=== PATIENT | female | born 1995 | race Caucasian/White ===

== ENCOUNTER 2018-08-10 22:04 | Inpatient (IN) ==
--- NOTE | 2018-08-10 23:24 | ED ---
History of Present Illness Primary Care Physician: Bayron Escoto MD Chief Complaint: Leaking of fluid History of Present Illness: 22-year-old , IUP at 40.2 care complicated by history of HSV but taking antivirals The patient presents complaining of leaking of fluid since 2 PM. She reports that she just constantly feels like she needs to change her underwear. She reports that this feels like leaking of fluid, not vaginal discharge. She reports of fluid is clear. She did not does not believe it is urine. She denies any large gush. She denies any painful contractions or cramping. She reports good movement. She denies any leaking of fluid or vaginal bleeding. She denies any headache tonight. She denies any visual changes, right upper quadrant or epigastric pain. 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, menarche at age 11, menses monthly, history of HSV PMH: denies FH: denies PSH: nasal septum repair SH: denies Meds/Allergies: as per EMR Weeks Gestation:: 40 Para: 0 : 2 Total # of Miscarriage(s): 0 Total # of Abortions (Spontaneous & Elective): 1 Review of Systems All other systems reviewed negative except as stated in HPI PMFSH - Medical History Medical History: Medical History (Last Updated 07/19/18 @ 15:05 by Omer Burk MD) HSV (herpes simplex virus) anogenital infection History of chronic hypertension History of wisdom tooth extraction - Surgical History Surgical History: Surgical History (Last Updated 07/19/18 @ 15:05 by Omer Burk MD) H/O rhinoplasty - Tobacco History Smoking Status: Former smoker - Alcohol History How Often Do You Have a Drink Containing Alcohol: Never - Substance Use History Substance History: No History of Abuse Medications and Allergies Active Medications: Active Medications Sodium Chloride (Ns Flush) 2 ml IV.FLUSH BID CHIDI Sodium Chloride (Ns Flush) 2 ml IV.FLUSH PRN PRN PRN Reason: FLUSH AFTER USING IV ACCESS Allergies Allergy/AdvReac Type Severity Reaction Status Date / Time No Known Allergies Allergy Verified 08/10/18 23:25 Home Medications Medication Instructions Recorded Confirmed Type PNV cmb#95-ferrous fumarate-FA 1 tab PO DAILY NEB 07/19/18 08/10/18 History [] acyclovir 250 mg PO BID 07/19/18 08/10/18 History Exam Vital signs: Vital Signs 08/10/18 22:28 08/10/18 22:48 08/10/18 23:15 Temperature 98.0 F Pulse Rate 110 H 101 H 105 H Respiratory Rate 20 Blood Pressure 155/95 H 140/81 135/82 Narrative: GENERAL: Well-nourished, well-developed patient. NAD. SKIN: Warm and dry. No rashes, masses, lesions noted. HEAD: Normocephalic and atraumatic. EYES: No scleral icterus. No injection or drainage. ENT: No nasal drainage noted. Mucous membranes pink. Airway patent. NECK: Supple, trachea midline. No JVD. CARDIOVASCULAR: Regular rate and rhythm without murmurs, gallops, or rubs. RESPIRATORY: Breath sounds equal bilaterally. No accessory muscle use. BREASTS: Deferred ABDOMEN/GI: Abdomen soft, non-tender, bowel sounds present, no rebound, no guarding, Gravid. GENITOURINARY: Normal EGBUS, no cervical or vaginal masses noted, physiologic discharge, grossly normal rugae, SVE 1/50/-3, Amnisure negative, no lesions noted FHT's: NST indicated for postterm , elevated BP. Moderate snf variability with heart rate baseline in the 120s, good accelerations and no decelerations noted. This is a category 1 heart rate tracing and reactive NST. EXTREMITIES: No cyanosis or edema. BACK: Nontender without obvious deformity. No CVA tenderness. NEUROLOGICAL/Musculoskeletal/Psychiatric: Awake and alert. Grossly normal memory /affect. Grossly normal range of motion. Grossly normal gait. Motor and sensory grossly within normal limits. Five out of 5 muscle strength in all muscle groups. Normal speech. Cranial Nerves II-XII are grossly intact. BPP report: a limited bedside ultrasound was performed by for BPP, numerous gross body movements and flexion/extension movements, >30 seconds continuous breathing, LENA 9.26 (3.22/2.82/3.22) Results - Labs CBC & Chem 7: 08/10/18 23:10 08/10/18 23:10 Assessment and Plan - Plan Assessment/plan: 1. IUP at 40.2 2. Gestational hypertension: We will admit to Dr. Vagovik and initiate induction of labor with Cytotec. I discussed with the patient the various methods of induction of labor and discussed the risks, benefits, and alternatives to each. We discussed that Cervidil acts more slowly over 12 hours. But Cytotec may be redosed more quickly however cannot be removed in the event the fetus does not tolerate the contractions are medication. We discussed that cervical ripening is indicated and will allow her body to respond better to Pitocin. The patient is in agreement with proceeding with Cytotec. We discussed the goal of a healthy and healthy mother. We discussed that the primary goal is a vaginal delivery but but that sometimes delivery is indicated. We discussed the risks of vaginal delivery including lacerations, bleeding/ hemorrhage, and shoulder dystocia which occurs in up to 3% of deliveries. We discussed that shoulder dystocia is unpredictable but she has no indications to recommend delivery. Her GDM testing was negative. We discussed the risks of shoulder dystocia that include but are not limited to a approximately 3-5% risk of permanent and irreversible neurological injury. We discussed the indications for section including maternal indications, indications, and emergent indications. The risks, benefits, and alternatives of section were discussed with the patient. The risks include but are not limited to pain, infection, bleeding, injury to other organs like the bladder/bowel/nerves/ vessels, injury to the baby, need for repeat operation, need for hysterectomy, need for blood transfusion, wound infection or breakdown, and other possible risks. All the patient's questions were answered and consent had previously been signed. She desires to proceed with induction of labor planning for a vaginal delivery. 3. well-being: Reassuring testing with reactive NST and category 1 heart rate tracing. Patient had a bedside biophysical profile that was 8/8 for a total score of 10/10, will continue monitoring 4. GBS negative 5. History of HSV: Patient has been taking famciclovir, no lesions are noted and patient complains of no symptoms Discharge Plan - Discharge Disposition Patient Disposition: ED Admit(ED Internal Use Only) - Physicians Team ED Provider: Emilee Ortiz Primary Care Provider: Bayron Escoto
[2018-08-10 23:30] LABS: Hematocrit 36.2 % (35.0-46.0); Hemoglobin 12.3 gm/dL (11.6-15.3); Mean Corpuscular HGB Conc 33.9 % (32.0-36.0); Mean Corpuscular Hemoglobin 30.1 pg (27.0-34.0); Mean Corpuscular Volume 88.9 fL (80.0-100.0); Mean Platelet Volume 8.2 fL (7.0-11.0); Platelet Count 248 th/mm3 (150-450); Red Blood Count 4.08 mil/mm3 (4.00-5.30); Red Cell Distribution Width 14.1 % (11.6-17.2); White Blood Count 10.9 th/mm3 (4.0-11.0)
[2018-08-10 23:45] LABS: Protein/Creatinine Ratio,Urine 0.21 (0.00-0.14); Total Protein,Urine Random 22.8 mg/dL (0-11.8)
[2018-08-10 23:46] LABS: Bacteria,Urine Rare /hpf; Bilirubin,Urine Negative (Negative); Clarity,Urine Clear (Clear); Color,Urine Yellow (Yellw/Straw); Glucose,Urine (UA) Negative (Negative); Leukocyte Esterase,Urine Small (Negative); Mucus,Urine Few /lpf (Occasional); Nitrite,Urine Negative (Negative); Specific Gravity,Urine 1.016 (1.002-1.035); Squamous Epithelial Cell,Urine 3 /hpf (0-5)
[2018-08-10 23:54] LABS: Albumin 2.9 g/dL (3.4-5.0); Anion Gap 10 meq/L (5-15); Aspartate Aminotransferase 13 U/L (15-37); Blood Urea Nitrogen 9 mg/dL (7-18); Calcium 10.1 mg/dL (8.5-10.1); Carbon Dioxide 21.6 meq/L (21.0-32.0); Chloride 107 meq/L (98-107); Glomerular Filtration Rate Greater Than 89 mL/min (>89); Glucose,Random 75 mg/dL (74-106); Potassium 4.2 meq/L (3.5-5.1); Sodium 139 meq/L (136-145); Uric Acid 4.4 mg/dl (2.6-6.0)
[2018-08-10 23:55] LABS: Alanine Aminotransferase 21 U/L (10-53)
[2018-08-10 23:57] LABS: Alkaline Phosphatase 176 U/L (45-117); Total Protein 7.1 g/dL (6.4-8.2)
[2018-08-11] MEDS ORDERED: Sodium Chlor 0.9% Inj 500 ML IV.SIG PRN (00:35)
[2018-08-11] MEDS ORDERED: Sod Chloride 0.9% Inj 1,000 ML IV.CONT PRN (00:35)
[2018-08-11] MEDS ORDERED: Naloxone Inj 0.4 MG/ML Vial IV.PUSH PRN (00:35)
[2018-08-11] MEDS ORDERED: fentaNYL Citrate Inj 100 MCG/2 ML Ampul IV.PUSH PRN (00:35)
[2018-08-11] MEDS ORDERED: Oxytocin 30 Units/500ml Premix 30 UNITS/500 ML BAG IV.SIG ONE (00:35)
--- NOTE | 2018-08-11 00:35 | P.HPOB ---
History of Present Illness Primary Care Physician: Bayron Escoto MD Chief Complaint: Leaking of fluid History of Present Illness: Chief Complaint: Leaking of fluid History of Present Illness: 22-year-old , IUP at 40.2 at presentation, now 40.3 care complicated by history of HSV but taking antivirals The patient presents complaining of leaking of fluid since 2 PM yesterday. She reports that she just constantly feels like she needs to change her underwear. She reports that this feels like leaking of fluid, not vaginal discharge. She reports of fluid is clear. She did not does not believe it is urine. She denies any large gush. She denies any painful contractions or cramping. She reports good movement. She denies any leaking of fluid or vaginal bleeding. She denies any headache tonight. She denies any visual changes, right upper quadrant or epigastric pain. 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 NAD. SKIN: Warm and dry. No rashes, masses, lesions noted. HEAD: Normocephalic and atraumatic. EYES: No scleral icterus. No injection or drainage. ENT: No nasal drainage noted. Mucous membranes pink. Airway patent. NECK: Supple, trachea midline. No JVD. CARDIOVASCULAR: Regular rate and rhythm without murmurs, gallops, or rubs. RESPIRATORY: Breath sounds equal bilaterally. No accessory muscle use. BREASTS: Deferred ABDOMEN/GI: Abdomen soft, non-tender, bowel sounds present, no rebound, no guarding, Gravid. GENITOURINARY: Normal EGBUS, no cervical or vaginal masses noted, physiologic discharge, grossly normal rugae, SVE 1/50/-3, Amnisure negative, no lesions noted FHT's: NST indicated for postterm , elevated BP. Moderate intermediate variability with heart rate baseline in the 120s, good accelerations and no decelerations noted. This is a category 1 heart rate tracing and reactive NST. EXTREMITIES: No cyanosis or edema. BACK: Nontender without obvious deformity. No CVA tenderness. NEUROLOGICAL/Musculoskeletal/Psychiatric: Awake and alert. Grossly normal memory /affect. Grossly normal range of motion. Grossly normal gait. Motor and sensory grossly within normal limits. Five out of 5 muscle strength in all muscle groups. Normal speech. Cranial Nerves II-XII are grossly intact. BPP report: a limited bedside ultrasound was performed by MD for BPP, numerous gross body movements and flexion/extension movements, >30 seconds continuous breathing, LENA 9.26 (3.22/2.82/3.22) Results Assessment and Plan - Plan Assessment/plan: 1. IUP at 40.3 2. Gestational hypertension: We will admit to Dr. Delgado and initiate induction of labor with Cytotec. I discussed with the patient the various methods of induction of labor and discussed the risks, benefits, and alternatives to each. We discussed that Cervidil acts more slowly over 12 hours. But Cytotec may be redosed more quickly however cannot be removed in the event the fetus does not tolerate the contractions are medication. We discussed that cervical ripening is indicated and will allow her body to respond better to Pitocin. The patient is in agreement with proceeding with Cytotec. We discussed the goal of a healthy and healthy mother. We discussed that the primary goal is a vaginal delivery but but that sometimes delivery is indicated. We discussed the risks of vaginal delivery including lacerations, bleeding/ hemorrhage, and shoulder dystocia which occurs in up to 3% of deliveries. We discussed that shoulder dystocia is unpredictable but she has no indications to recommend delivery. Her GDM testing was negative. We discussed the risks of shoulder dystocia that include but are not limited to a approximately 3-5% risk of permanent and irreversible neurological injury. We discussed the indications for section including maternal indications, indications, and emergent indications. The risks, benefits, and alternatives of section were discussed with the patient. The risks include but are not limited to pain, infection, bleeding, injury to other organs like the bladder/bowel/nerves/ vessels, injury to the baby, need for repeat operation, need for hysterectomy, need for blood transfusion, wound infection or breakdown, and other possible risks. All the patient's questions were answered and consent had previously been signed. She desires to proceed with induction of labor planning for a vaginal delivery. 3. well-being: Reassuring testing with reactive NST and category 1 heart rate tracing. Patient had a bedside biophysical profile that was 8/8 for a total score of 10/10, will continue monitoring 4. GBS negative 5. History of HSV: Patient has been taking famciclovir, no lesions are noted and patient complains of no symptoms Discharge Plan - Discharge Disposition Patient Disposition: ED Admit(ED Internal Use Only) - Physicians Team ED Provider: Emilee Ortiz Primary Care Provider: Bayron Escoto - Inpatient Certification I certify that the inpatient services were ordered in accordance with Medicare regulations governing the order. This includes certification that hospital inpatient services are reasonable and necessary and in the case of services not specified as inpatient-only under 42 CFR 419.22(n), that they are appropriately provided as inpatient services in accordance to with the 2-midnight benchmark under 43 CFR 412.3(e) PMFSH - Medical History Medical History: Medical History (Last Updated 07/19/18 @ 15:05 by Omer Burk MD) HSV (herpes simplex virus) anogenital infection History of chronic hypertension History of wisdom tooth extraction - Surgical History Surgical History: Surgical History (Last Updated 07/19/18 @ 15:05 by Omer Burk MD) H/O rhinoplasty - Tobacco History Smoking Status: Former smoker - Alcohol History How Often Do You Have a Drink Containing Alcohol: Never - Substance Use History Substance History: No History of Abuse Medications and Allergies Active Medications: Active Medications Sodium Chloride (Ns Flush) 2 ml IV.FLUSH BID CHIDI Sodium Chloride (Ns Flush) 2 ml IV.FLUSH PRN PRN PRN Reason: FLUSH AFTER USING IV ACCESS Allergies Allergy/AdvReac Type Severity Reaction Status Date / Time No Known Allergies Allergy Verified 08/10/18 23:25 Home Medications Medication Instructions Recorded Confirmed Type PNV cmb#95-ferrous fumarate-FA 1 tab PO DAILY NEB 07/19/18 08/10/18 History [] acyclovir 250 mg PO BID 07/19/18 08/10/18 History Exam Vital signs: Vital Signs 08/10/18 22:28 08/10/18 22:48 08/10/18 23:15 Temperature 98.0 F Pulse Rate 110 H 101 H 105 H Respiratory Rate 20 Blood Pressure 155/95 H 140/81 135/82 08/11/18 00:09 08/11/18 00:15 Temperature Pulse Rate 99 H Respiratory Rate 18 Blood Pressure 145/74 H Intake & Output 08/10/18 08/10/18 08/11/18 06:59 18:59 06:59 Weight 115 kg Results - Labs CBC & Chem 7: 08/10/18 23:10 08/10/18 23:10 Labs: Laboratory Results - last 24 hr 08/10/18 08/10/18 08/10/18 22:40 22:40 23:10 WBC 10.9 RBC 4.08 Hgb 12.3 Hct 36.2 MCV 88.9 MCH 30.1 MCHC 33.9 RDW 14.1 Plt Count 248 MPV 8.2 Sodium Potassium Chloride Carbon Dioxide Anion Gap BUN Creatinine Estimated GFR Random Glucose Uric Acid Calcium Total Bilirubin AST ALT Alkaline Phosphatase Total Protein Albumin Urine Color Yellow Urine Clarity Clear Urine pH 6.0 Ur Specific [place] 1.016 Urine Protein Negative Urine Glucose (UA) Negative Urine Ketones Negative Urine Occult Blood Negative Urine Nitrate Negative Urine Bilirubin Negative Urine Urobilinogen Less than 2 Ur Leukocyte Esterase Small H Urine RBC 1 Urine WBC 5 Ur Squamous Epith Cells 3 Urine Bacteria Rare H Urine Mucus Few H Micro UA Comment Culture not ind Ur Microscopic Review Not Reportable Urine Culture Comments Culture not ind Ur Random Creatinine 107 U Random Total Protein 22.8 H Protein/Creatinin Ratio 0.21 H 08/10/18 23:10 WBC RBC Hgb Hct MCV MCH MCHC RDW Plt Count MPV Sodium 139 Potassium 4.2 Chloride 107 Carbon Dioxide 21.6 Anion Gap 10 BUN 9 Creatinine 0.57 Estimated GFR Greater than 89 Random Glucose 75 Uric Acid 4.4 Calcium 10.1 Total Bilirubin 0.2 AST 13 L ALT 21 Alkaline Phosphatase 176 H Total Protein 7.1 Albumin 2.9 L Urine Color Urine Clarity Urine pH Ur Specific [place] Urine Protein Urine Glucose (UA) Urine Ketones Urine Occult Blood Urine Nitrate Urine Bilirubin Urine Urobilinogen Ur Leukocyte Esterase Urine RBC Urine WBC Ur Squamous Epith Cells Urine Bacteria Urine Mucus Micro UA Comment Ur Microscopic Review Urine Culture Comments Ur Random Creatinine U Random Total Protein Protein/Creatinin Ratio Caprini VTE Risk Assessment Caprini VTE Risk Assessment: No/Low Risk (score <= 1) Caprini Risk Assessment Model: Point Value = 1 Point Value = 2 Point Value = 3 Point Value = 5 Age 41-60 Minor surgery BMI > 25 kg/m2 Swollen legs Varicose veins or History of unexplained or recurrent spontaneous Oral contraceptives or hormone replacement Sepsis (< 1 month) Serious lung disease, including pneumonia (< 1 month) Abnormal pulmonary function Acute myocardial infarction Congestive heart failure (< 1 month) History of inflammatory bowel disease Medical patient at bed rest Age 61-74 Arthroscopic surgery Major open surgery (> 45 min) Laparoscopic surgery (> 45 min) Malignancy Confined to bed (> 72 hours) Immobilizing plaster cast Central venous access Age >= 75 History of VTE Family history of VTE Factor V Leiden Prothrombin [id number] Lupus anticoagulant Anticardiolipin antibodies Elevated serum homocysteine Heparin-induced thrombocytopenia Other congenital or acquired thrombophilia Stroke (< 1 month) Elective arthroplasty Hip, pelvis, or leg fracture Acute spinal cord injury (< 1 month) Prophylaxis Regimen: Total Risk Factor Score Risk Level Prophylaxis Regimen 0-1 Low Early ambulation 2 Moderate Order ONE of the following: *Sequential Compression Device (SCD) *Heparin 5000 units SQ BID 3-4 Higher Order ONE of the following medications: *Heparin 5000 units SQ TID *Enoxaparin/Lovenox 40 mg SQ daily (WT < 150 kg, CrCl > 30 mL/min) *Enoxaparin/Lovenox 30 mg SQ daily (WT < 150 kg, CrCl > 10-29 mL/min) *Enoxaparin/Lovenox 30 mg SQ BID (WT < 150 kg, CrCl > 30 mL/min) AND/OR *Sequential Compression Device (SCD) 5 or more Highest Order ONE of the following medications: *Heparin 5000 units SQ TID (Preferred with Epidurals) *Enoxaparin/Lovenox 40 mg SQ daily (WT < 150 kg, CrCl > 30 mL/min) *Enoxaparin/Lovenox 30 mg SQ daily (WT < 150 kg, CrCl > 10-29 mL/min) *Enoxaparin/Lovenox 30 mg SQ BID (WT < 150 kg, CrCl > 30 mL/min) AND *Sequential Compression Device (SCD)
[2018-08-11] MEDS ORDERED: Citric Acid/Sodium Citrate Liq 30 ML UDC PO SCH (00:45)
[2018-08-11] MEDS ORDERED: Sod Chloride 0.9% Inj 1,000 ML IRRIGATION SCH (00:45)
[2018-08-11] MEDS ORDERED: Zolpidem Tartrate 5 MG Tablet PO PRN (01:02)
--- NOTE | 2018-08-11 01:02 | P.PN ---
Subjective Interval history: Cytotec placed as per plan with Dr. Delgado. FHR reassuring. 25 mcg Cytotec placed in posterior fornix. Physical Exam Vital signs: Vital Signs 08/10/18 22:28 08/10/18 22:48 08/10/18 23:15 Temperature 98.0 F Pulse Rate 110 H 101 H 105 H Respiratory Rate 20 Blood Pressure 155/95 H 140/81 135/82 08/11/18 00:09 08/11/18 00:15 Temperature Pulse Rate 99 H Respiratory Rate 18 Blood Pressure 145/74 H Intake & Output 08/10/18 08/10/18 08/11/18 06:59 18:59 06:59 Weight 115 kg Results - Labs CBC & Chem 7: 08/10/18 23:10 08/10/18 23:10 Laboratory Results - last 24 hr 08/10/18 08/10/18 08/10/18 22:40 22:40 23:10 WBC 10.9 RBC 4.08 Hgb 12.3 Hct 36.2 MCV 88.9 MCH 30.1 MCHC 33.9 RDW 14.1 Plt Count 248 MPV 8.2 Sodium Potassium Chloride Carbon Dioxide Anion Gap BUN Creatinine Estimated GFR Random Glucose Uric Acid Calcium Total Bilirubin AST ALT Alkaline Phosphatase Total Protein Albumin Urine Color Yellow Urine Clarity Clear Urine pH 6.0 Ur Specific [place] 1.016 Urine Protein Negative Urine Glucose (UA) Negative Urine Ketones Negative Urine Occult Blood Negative Urine Nitrate Negative Urine Bilirubin Negative Urine Urobilinogen Less than 2 Ur Leukocyte Esterase Small H Urine RBC 1 Urine WBC 5 Ur Squamous Epith Cells 3 Urine Bacteria Rare H Urine Mucus Few H Micro UA Comment Culture not ind Ur Microscopic Review Not Reportable Urine Culture Comments Culture not ind Ur Random Creatinine 107 U Random Total Protein 22.8 H Protein/Creatinin Ratio 0.21 H 08/10/18 23:10 WBC RBC Hgb Hct MCV MCH MCHC RDW Plt Count MPV Sodium 139 Potassium 4.2 Chloride 107 Carbon Dioxide 21.6 Anion Gap 10 BUN 9 Creatinine 0.57 Estimated GFR Greater than 89 Random Glucose 75 Uric Acid 4.4 Calcium 10.1 Total Bilirubin 0.2 AST 13 L ALT 21 Alkaline Phosphatase 176 H Total Protein 7.1 Albumin 2.9 L Urine Color Urine Clarity Urine pH Ur Specific [place] Urine Protein Urine Glucose (UA) Urine Ketones Urine Occult Blood Urine Nitrate Urine Bilirubin Urine Urobilinogen Ur Leukocyte Esterase Urine RBC Urine WBC Ur Squamous Epith Cells Urine Bacteria Urine Mucus Micro UA Comment Ur Microscopic Review Urine Culture Comments Ur Random Creatinine U Random Total Protein Protein/Creatinin Ratio
[2018-08-11 05:30] LABS: Lymphocytes 24 % (9-44); Monocytes 2 % (0-8)
[2018-08-11 05:31] LABS: Platelet Estimate Normal (Normal); Platelet Morphology Normal (Normal); RBC Morphology Normal (Normal)
[2018-08-11] MEDS ORDERED: Oxytocin 30 Units/500ml Premix 30 UNITS/500 ML BAG IV.SIG PRN (10:17)
[2018-08-11] MEDS: fentaNYL Citrate Inj 100 MCG/2 ML Ampul IV.PUSH PRN ×2 (18:02→21:11)
[2018-08-11] MEDS ORDERED: fentaNYL 2MCG-Bupiv 0.125% Epi 150 ML EPIDURAL ONE (22:20)
[2018-08-11] MEDS ORDERED: fentaNYL 2MCG-Bupiv 0.125% Epi 150 ML EPIDURAL PRN (23:34)
[2018-08-11] MEDS ORDERED: fentaNYL Citrate Inj 100 MCG/2 ML Ampul EPIDURAL ONE (23:34)
[2018-08-12] MEDS ORDERED: miSOPROStol 200 MCG Tablet ONE (08:31)
[2018-08-12] MEDS ORDERED: Bisacodyl 10 MG Supp RECTAL PRN (08:56)
[2018-08-12] MEDS ORDERED: Zolpidem Tartrate 5 MG Tablet PO PRN (08:56)
[2018-08-12] MEDS ORDERED: Benzocaine 20% Top Spray 60 ML Can TOPICAL PRN (08:56)
[2018-08-12] MEDS ORDERED: Oxytocin 30 Units/500ml Premix 30 UNITS/500 ML BAG IV.CONT PRN (08:56)
[2018-08-12] MEDS ORDERED: Naloxone Inj 0.4 MG/ML Vial IV.PUSH PRN (08:56)
--- NOTE | 2018-08-12 09:01 | P.OBDELI ---
Weeks Gestation: 40 Patient Started Active Labor: No Medical Induction of Labor: Yes Medical Induction Start Date: 08/11/18 Artificial Rupture of Membrane: Yes Artificial ROM Date: 08/11/18 Anesthesia: Epidural Episiotomy: midline Vaginal Delivery: Vacuum Presentation: Occiput anterior Nuchal Cord: None Delayed Cord Clamping (45 sec): Yes Placenta: Spontaneous delivery, Intact, 3 vessel cord Laceration: Episiotomy Repair: Vicryl running Estimated blood loss (mL): 400 Infant Female A score (1 min): 9 score (5 min): 9 (Vacuum extraction due to materal exhaustion. Pulled thru 4 contractions and then an easy delivery. Thick meconium noted and team present..Baby Aramis did very well.)
[2018-08-12] MEDS: Senna/Docusate Sodium 8.6/50 MG Tablet PO SCH ×2 (11:18→21:17)
[2018-08-12] MEDS: Witch Hazel 50%/Glyderin 12.5% 40 Pad Jar RECTAL PRN (11:18)
[2018-08-12] MEDS ORDERED: Diphtheria/Tetanus/Pertussis Vaccine Inj 0.5 ML Syringe IM ONE (16:00)
[2018-08-12] MEDS ORDERED: Measles/Mumps/Rubella Vaccine Inj 0.5 ML Vial SQ ONE (16:00)
[2018-08-12] MEDS: Acetaminophen 325 MG Tablet PO PRN ×2 (18:58→23:23)
[2018-08-13] MEDS: Acetaminophen 325 MG Tablet PO PRN ×4 (04:11→20:49)
--- NOTE | 2018-08-13 09:37 | P.PNOB ---
Subjective Post day: 1 Objective Vital Signs/I&O: Vital Signs 08/12/18 09:45 08/12/18 09:59 08/12/18 11:15 Temperature Pulse Rate 138 H 88 Respiratory Rate 18 18 12 Blood Pressure 108/85 141/78 H 08/12/18 11:34 08/12/18 15:00 08/12/18 20:00 Temperature 98.5 F 97.6 F 98.1 F Pulse Rate 120 H 98 H 72 Respiratory Rate 18 20 18 Blood Pressure 143/70 H 144/76 H 08/13/18 08:00 Temperature 97.9 F Pulse Rate 94 H Respiratory Rate 18 Blood Pressure 129/72 Result Diagrams: 08/10/18 23:10 08/10/18 23:10 Objective Remarks: GENERAL: Well-nourished, well-developed patient. CARDIOVASCULAR: Regular rate and rhythm without murmurs, gallops, or rubs. RESPIRATORY: Breath sounds equal bilaterally. No accessory muscle use. ABDOMEN/GI: Abdomen soft, non-tender. Fundus: Firm, non-tender at umbilicus. GENITOURINARY: Light to moderate bleeding. EXTREMITIES: No cyanosis or edema, non-tender, without signs of DVT. Medications and IVs: Active Medications Acetaminophen (Tylenol) 650 mg PO Q4H PRN PRN Reason: PAIN SCALE 1 TO 2 Last Admin: 08/13/18 07:54 Dose: 650 mg Al Hydroxide/Mg Hydroxide (Milk Of Magnesia Liq) 30 ml PO Q12H PRN PRN Reason: Mild Constipation Benzocaine (Americaine 20% [place]) 1 spray TOPICAL Q4H PRN PRN Reason: For Perineum Discomfort Last Admin: 08/12/18 11:18 Dose: 1 spray Bisacodyl (Dulcolax Supp) 10 mg RECTAL DAILY PRN PRN Reason: SEVERE CONSITIPATION Oxytocin (Pitocin 30 Units/Ns 500 Ml Premix) 30 units in 500 mls @ 2 mls/hr IV.SIG TITRATE PRN; Protocol PRN Reason: For induction of labor Last Admin: 08/11/18 10:56 Dose: 2 milliunit/min, 2 mls/hr Fentanyl/Bupivacaine/Sodium Chlor (Fentanyl 2 Mcg-Bupiv 0.125% Epi) 150 mls @ 14 mls/hr EPIDURAL PRN PRN PRN Reason: for Labor Pain Last Admin: 08/11/18 23:20 Dose: 14 mls/hr Oxytocin (Pitocin 30 Units/Ns 500 Ml Premix) 30 units in 500 mls @ 100 mls/hr IV.CONT UNSCH PRN PRN Reason: Heavy bleeding Ibuprofen (Motrin) 800 mg PO Q8H PRN PRN Reason: For Cramping Last Admin: 08/13/18 04:12 Dose: 800 mg Lactulose (Lactulose Liq) 30 ml PO DAILY PRN PRN Reason: SEVERE CONSITIPATION Naloxone HCl (Narcan Inj) 0.1 mg IV.PUSH Q2M PRN PRN Reason: for opiate reversal Ondansetron HCl (Zofran Odt) 4 mg PO Q6H PRN PRN Reason: NAUSEA OR VOMITING Last Admin: 08/12/18 11:18 Dose: 4 mg Vit/Calcium/Iron/Folic Ac (Stuartnatal Plus 3) 1 tab PO DAILY [facility] Senna/Docusate Sodium (Naz-Colace) 1 tab PO BID CHIDI Last Admin: 08/12/18 21:17 Dose: 1 tab Sennosides (Senokot) 17.2 mg PO Q12H PRN PRN Reason: Moderate Constipation Sodium Chloride (Ns Flush) 2 ml IV.FLUSH BID CHDII Last Admin: 08/12/18 21:19 Dose: 2 ml Sodium Chloride (Ns Flush) 2 ml IV.FLUSH PRN PRN PRN Reason: FLUSH AFTER USING IV ACCESS Witch Malika/Glycerin (Tucks Pads) 1 applicatio RECTAL QID PRN PRN Reason: HEMORRHOIDS Last Admin: 08/12/18 11:18 Dose: 1 applicatio Zolpidem Tartrate (Ambien) 5 mg PO HS PRN PRN Reason: SLEEP Assessment and Plan - Diagnosis (1) (normal spontaneous vaginal delivery) Code(s): O80 - Encounter for full-term uncomplicated delivery Status: Acute Plan: routine post op care - Plan PPD #1 pt doing well pain managed with oral pain medication perineum sore, will continue ice diapers and tucks c/o gas, ambulation and simethicone recommended and bonding with infant routine care Discharge Planning: dc home tomorrow
[2018-08-13] MEDS: Senna/Docusate Sodium 8.6/50 MG Tablet PO SCH ×2 (13:02→20:49)
[2018-08-13] MEDS: Prenatal Vit/Ca/Iron/Folic Acid Tablet PO SCH ×2 (13:03→13:05)
[2018-08-13] MEDS: Witch Hazel 50%/Glyderin 12.5% 40 Pad Jar RECTAL PRN (21:15)
[2018-08-14] MEDS: Acetaminophen 325 MG Tablet PO PRN (04:38)
[2018-08-14] MEDS: Senna/Docusate Sodium 8.6/50 MG Tablet PO SCH (09:00)
[2018-08-14] MEDS: Prenatal Vit/Ca/Iron/Folic Acid Tablet PO SCH (09:00)
--- NOTE | 2018-08-14 09:58 | P.PNOB ---
Subjective Post day: 2 Objective Vital Signs/I&O: Vital Signs 08/13/18 19:51 08/14/18 08:00 Temperature 98.7 F 98.3 F Pulse Rate 109 H 92 H Respiratory Rate 20 18 Blood Pressure 141/75 H 127/63 Result Diagrams: 08/10/18 23:10 08/10/18 23:10 Objective Remarks: GENERAL: Well-nourished, well-developed patient. CARDIOVASCULAR: Regular rate and rhythm without murmurs, gallops, or rubs. RESPIRATORY: Breath sounds equal bilaterally. No accessory muscle use. ABDOMEN/GI: Abdomen soft, non-tender. Fundus: Firm, non-tender at umbilicus. GENITOURINARY: Light to moderate bleeding. EXTREMITIES: No cyanosis or edema, non-tender, without signs of DVT. Medications and IVs: Active Medications Acetaminophen (Tylenol) 650 mg PO Q4H PRN PRN Reason: PAIN SCALE 1 TO 2 Last Admin: 08/14/18 04:38 Dose: 650 mg Al Hydroxide/Mg Hydroxide (Milk Of Magnesia Liq) 30 ml PO Q12H PRN PRN Reason: Mild Constipation Benzocaine (Americaine 20% [place]) 1 spray TOPICAL Q4H PRN PRN Reason: For Perineum Discomfort Last Admin: 08/12/18 11:18 Dose: 1 spray Bisacodyl (Dulcolax Supp) 10 mg RECTAL DAILY PRN PRN Reason: SEVERE CONSITIPATION Oxytocin (Pitocin 30 Units/Ns 500 Ml Premix) 30 units in 500 mls @ 2 mls/hr IV.SIG TITRATE PRN; Protocol PRN Reason: For induction of labor Last Admin: 08/11/18 10:56 Dose: 2 milliunit/min, 2 mls/hr Fentanyl/Bupivacaine/Sodium Chlor (Fentanyl 2 Mcg-Bupiv 0.125% Epi) 150 mls @ 14 mls/hr EPIDURAL PRN PRN PRN Reason: for Labor Pain Last Admin: 08/11/18 23:20 Dose: 14 mls/hr Oxytocin (Pitocin 30 Units/Ns 500 Ml Premix) 30 units in 500 mls @ 100 mls/hr IV.CONT UNSCH PRN PRN Reason: Heavy bleeding Ibuprofen (Motrin) 800 mg PO Q8H PRN PRN Reason: For Cramping Last Admin: 08/14/18 04:39 Dose: 800 mg Lactulose (Lactulose Liq) 30 ml PO DAILY PRN PRN Reason: SEVERE CONSITIPATION Naloxone HCl (Narcan Inj) 0.1 mg IV.PUSH Q2M PRN PRN Reason: for opiate reversal Ondansetron HCl (Zofran Odt) 4 mg PO Q6H PRN PRN Reason: NAUSEA OR VOMITING Last Admin: 08/12/18 11:18 Dose: 4 mg Vit/Calcium/Iron/Folic Ac (Stuartnatal Plus 3) 1 tab PO DAILY [facility] Last Admin: 08/13/18 13:05 Dose: 1 tab Senna/Docusate Sodium (Naz-Colace) 1 tab PO BID [facility] Last Admin: 08/13/18 20:49 Dose: 1 tab Sennosides (Senokot) 17.2 mg PO Q12H PRN PRN Reason: Moderate Constipation Sodium Chloride (Ns Flush) 2 ml IV.FLUSH BID [facility] Last Admin: 08/13/18 18:33 Dose: Not Given Sodium Chloride (Ns Flush) 2 ml IV.FLUSH PRN PRN PRN Reason: FLUSH AFTER USING IV ACCESS Witch Malika/Glycerin (Tucks Pads) 1 applicatio RECTAL QID PRN PRN Reason: HEMORRHOIDS Last Admin: 08/13/18 21:15 Dose: 1 applicatio Zolpidem Tartrate (Ambien) 5 mg PO HS PRN PRN Reason: SLEEP Assessment and Plan - Diagnosis (1) (normal spontaneous vaginal delivery) Code(s): O80 - Encounter for full-term uncomplicated delivery Status: Acute Plan: routine post op care (2) Gestational hypertension Code(s): O13.9 - Gestational [-induced] hypertension without significant proteinuria, unspecified trimester Status: Acute Plan: labs negative bp stable discussed s/s pre-eclampsia - Plan PPD #2 pain managed with oral pain medication perineum improving had bm and bonding with infant bp stable, discussed s/s of pre-eclampsia, advised to be seen if symptoms occur routine care Discharge Planning: dc home today
--- NOTE | 2018-08-14 10:01 | P.DS ---
Date of admission: 08/11/18 00:18 Primary care physician: Bayron Escoto MD Attending physician on discharge: Jerry Vargas Anticipated date of discharge: 08/14/18 Brief History from admission: Chief Complaint: Leaking of fluid History of Present Illness: 22-year-old , IUP at 40.2 at presentation, now 40.3 care complicated by history of HSV but taking antivirals The patient presents complaining of leaking of fluid since 2 PM yesterday. She reports that she just constantly feels like she needs to change her underwear. She reports that this feels like leaking of fluid, not vaginal discharge. She reports of fluid is clear. She did not does not believe it is urine. She denies any large gush. She denies any painful contractions or cramping. She reports good movement. She denies any leaking of fluid or vaginal bleeding. She denies any headache tonight. She denies any visual changes, right upper quadrant or epigastric pain. TOP CLEANER: , EAB x1, menarche at age 11, menses monthly, history of HSV PMH: denies FH: denies PSH: nasal septum repair SH: denies Meds/Allergies: as per EMR Weeks Gestation:: 40 Para: 0 : 2 Total # of Miscarriage(s): 0 Total # of Abortions (Spontaneous & Elective): 1 Review of Systems All other systems reviewed negative except as stated in HPI Narrative: GENERAL: Well-nourished, well-developed patient. NAD. SKIN: Warm and dry. No rashes, masses, lesions noted. HEAD: Normocephalic and atraumatic. EYES: No scleral icterus. No injection or drainage. ENT: No nasal drainage noted. Mucous membranes pink. Airway patent. NECK: Supple, trachea midline. No JVD. CARDIOVASCULAR: Regular rate and rhythm without murmurs, gallops, or rubs. RESPIRATORY: Breath sounds equal bilaterally. No accessory muscle use. BREASTS: Deferred ABDOMEN/GI: Abdomen soft, non-tender, bowel sounds present, no rebound, no guarding, Gravid. GENITOURINARY: Normal EGBUS, no cervical or vaginal masses noted, physiologic discharge, grossly normal rugae, SVE 1/50/-3, Amnisure negative, no lesions noted FHT's: NST indicated for postterm , elevated BP. Moderate residential variability with heart rate baseline in the 120s, good accelerations and no decelerations noted. This is a category 1 heart rate tracing and reactive NST. EXTREMITIES: No cyanosis or edema. BACK: Nontender without obvious deformity. No CVA tenderness. NEUROLOGICAL/Musculoskeletal/Psychiatric: Awake and alert. Grossly normal memory /affect. Grossly normal range of motion. Grossly normal gait. Motor and sensory grossly within normal limits. Five out of 5 muscle strength in all muscle groups. Normal speech. Cranial Nerves II-XII are grossly intact. BPP report: a limited bedside ultrasound was performed by MD for BPP, numerous gross body movements and flexion/extension movements, >30 seconds continuous breathing, LENA 9.26 (3.22/2.82/3.22) Results Assessment and Plan - Plan Assessment/plan: 1. IUP at 40.3 2. Gestational hypertension: We will admit to Dr. Delgado and initiate induction of labor with Cytotec. I discussed with the patient the various methods of induction of labor and discussed the risks, benefits, and alternatives to each. We discussed that Cervidil acts more slowly over 12 hours. But Cytotec may be redosed more quickly however cannot be removed in the event the fetus does not tolerate the contractions are medication. We discussed that cervical ripening is indicated and will allow her body to respond better to Pitocin. The patient is in agreement with proceeding with Cytotec. We discussed the goal of a healthy and healthy mother. We discussed that the primary goal is a vaginal delivery but but that sometimes delivery is indicated. We discussed the risks of vaginal delivery including lacerations, bleeding/ hemorrhage, and shoulder dystocia which occurs in up to 3% of deliveries. We discussed that shoulder dystocia is unpredictable but she has no indications to recommend delivery. Her GDM testing was negative. We discussed the risks of shoulder dystocia that include but are not limited to a approximately 3-5% risk of permanent and irreversible neurological injury. We discussed the indications for section including maternal indications, indications, and emergent indications. The risks, benefits, and alternatives of section were discussed with the patient. The risks include but are not limited to pain, infection, bleeding, injury to other organs like the bladder/bowel/nerves/ vessels, injury to the baby, need for repeat operation, need for hysterectomy, need for blood transfusion, wound infection or breakdown, and other possible risks. All the patient's questions were answered and consent had previously been signed. She desires to proceed with induction of labor planning for a vaginal delivery. 3. well-being: Reassuring testing with reactive NST and category 1 heart rate tracing. Patient had a bedside biophysical profile that was 8/8 for a total score of 10/10, will continue monitoring 4. GBS negative 5. History of HSV: Patient has been taking famciclovir, no lesions are noted and patient complains of no symptoms Discharge Plan - Discharge Disposition Patient Disposition: ED Admit(ED Internal Use Only) - Physicians Team ED Provider: Emilee Ortiz Primary Care Provider: Bayron Escoto DS: Diagnosis - Discharge Diagnosis (1) (normal spontaneous vaginal delivery) Status: Acute (2) Gestational hypertension Status: Acute DS: Summary Hospital Course: 40 + weeks gestation cytotec/ pitocin induction routine post care - Time Spent with Patient Total time spent providing and/or coordinating discharge services: Less than 30 minutes Exam Vital signs: Vital Signs 08/13/18 19:51 08/14/18 08:00 Temperature 98.7 F 98.3 F Pulse Rate 109 H 92 H Respiratory Rate 20 18 Blood Pressure 141/75 H 127/63 Narrative: see pp note Results Procedures completed during hospitalization: Discharge Plan - Discharge Disposition Patient Disposition: 01 Discharge Home - Discharge Condition Condition: Good - Discharge Order Discharge Orders: Discharge Order (Routine); Ordered 08/14/18 Ordered By: Tanvi Lewis TOP CLEANER Clear for Discharge (Routine); Ordered 08/14/18 Ordered By: Tanvi Lewis - Discharge Details Anticipated Discharge Date: 08/13/18 - Physicians Team Primary Care Provider: Bayron Escoto Attending Provider: Jerry Vargas Other Providers: [employer],Insurance
[2018-08-14 11:39] VITALS: BP 142/84; PULSE 93; RESP 16; TEMP 97.9
== END 2018-08-14 17:36 | disposition home or self-care (01) | DRG 806 ==
LOC: HOBED 22:04 → H2E 08-11 00:18 → H1EA 08-12 10:53
PROVIDERS: ADMIT Obstetrics & Gynecology; ATTEND Obstetrics & Gynecology
CPT/HCPCS: 59025; 76815; 80053; 81001; 82570; 83518; 84112; 84155; 84157; 84550; 85025; 85027; 85461; 86850; 86900; 86901; 88307; 90384; 99285; J2405; J2590; J2790; J3010; J7120